=== PATIENT | female | born 1995 | race Hispanic/Latino ===

== ENCOUNTER 2019-02-25 21:43 | Emergency (ER) | payer OTHER ==
[2019-02-25] MEDS ORDERED: Ketorolac Tromethamine 60 MG/2 ML VIAL ONE (22:06)
[2019-02-25] MEDS ORDERED: Adacel (T-DAP) 0.5 ML SYRINGE ONE (22:10)
--- NOTE | 2019-02-25 22:41 | CT ---
CT Cervical Spine WO Con Indication: Pain/Injury COMPARISON: None FINDINGS: Acute fracture/subluxation: None Spinal alignment: No acute malalignment. Vertebral body heights: Maintained. Cervical spine degenerative change: None of significance. IMPRESSION: No acute osseous abnormality.
== END 2019-02-25 23:00 | disposition home or self-care (01) ==
LOC: ERS 21:43
DX: S16.1XXA Strain of muscle, fascia and tendon at neck level, initial encounter (principal); S50.312A Abrasion of left elbow, initial encounter; S80.212A Abrasion, left knee, initial encounter; S80.211A Abrasion, right knee, initial encounter; S80.811A Abrasion, right lower leg, initial encounter; F41.9 Anxiety disorder, unspecified; V43.52XA Car driver injured in collision with other type car in traffic accident, initial encounter
CPT/HCPCS: 72125; 90471; 90715; 96372; J1885